=== PATIENT | female | born 1955 | race Caucasian/White ===

== ENCOUNTER 2020-09-03 12:21 | Emergency (ER) | payer MEDICARE, BC ==
[~2020-09-03] VITALS: Ht 154.9 cm; Wt 78.9 kg
[2020-09-03] MEDS ORDERED: TYLOPHEN500 MG PO (12:45)
[2020-09-03] MEDS ORDERED: PREDNISONE20 MG PO (14:27)
== END 2020-09-03 14:43 | disposition home or self-care (01) ==
LOC: ED 12:21
DX: M54.41 Lumbago with sciatica, right side (principal); M54.42 Lumbago with sciatica, left side; Z87.891 Personal history of nicotine dependence; Z88.5 Allergy status to narcotic agent; Z79.899 Other long term (current) drug therapy
CPT/HCPCS: 99283

== ENCOUNTER 2020-09-15 13:50 | Emergency (ER) | payer MEDICARE, BC ==
[~2020-09-15] VITALS: Ht 154.9 cm; Wt 78.9 kg
[~2020-09-15 13:50] MED LIST: PREDNISONE20 MG PO; TYLOPHEN500 MG PO
--- OUTSIDE RECORDS SUMMARY | 2020-09-15 13:54 | XMS ---
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 Mary has no Care Guidelines for this patient. Deejay VISIT COUNT (12 MO.) [address] TOTAL 3 NOTE: Visits indicate total known visits. ED/C VISIT TRACKING (12 MO.) [facility] COMPLAINT: - LOWER BACK PAIN 09/03/2020 12:22 J[facility] Vaughn [place] TYPE: Emergency COMPLAINT: - BACK PAIN, NO INJURY DIAGNOSES: - Other care home (current) drug therapy - Personal history of nicotine dependence - Lumbago with sciatica, left side - Allergy status to narcotic agent - Low back pain - Lumbago with sciatica, right side 03/22/2020 08:45 [facility] [place] TYPE: Emergency DIAGNOSES: - L SIDE PAIN - Diverticulitis of intestine, part unspecified, without perforation or abscess without bleeding INPATIENT VISIT TRACKING (12 MO.) No inpatient visits to display in this time frame [email or web address]
[2020-09-15] MEDS ORDERED: NEURONTIN300 MG PO (15:09)
[2020-09-15] MEDS ORDERED: MELOXICAM7.5 MG PO (15:09)
== END 2020-09-15 15:42 | disposition home or self-care (01) ==
LOC: ED 13:50
DX: M48.061 Spinal stenosis, lumbar region without neurogenic claudication (principal); Z87.891 Personal history of nicotine dependence; Z88.5 Allergy status to narcotic agent
CPT/HCPCS: 72131; 96372; 99283-25; J1885

== ENCOUNTER 2022-04-06 19:08 | Emergency (ER) | payer BC, MEDICARE ==
[~2022-04-06] VITALS: Ht 154.9 cm; Wt 73.2 kg
[~2022-04-06 19:08] MED LIST changes: +MELOXICAM7.5 MG PO; +NEURONTIN300 MG PO
--- OUTSIDE RECORDS SUMMARY | 2022-04-06 19:10 | XMS ---
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 Mary has no Care Guidelines for this patient. Deejay VISIT COUNT (12 MO.) [address] Hilario Mcdonald TOTAL 4 NOTE: Visits indicate total known visits. ED/C VISIT TRACKING (12 MO.) 04/06/2022 19:09 [facility] [place] [facility] COMPLAINT: - FLANK PAIN 03/21/2022 13:35 [facility] DIAGNOSES: - Low back pain, unspecified - BACK PROBLEM 02/01/2022 12:23 [facility] [place] TYPE: Emergency DIAGNOSES: - Pneumonia, unspecified organism - COUGH FEVER JOINT PAIN LUNSFORD EAR PAIN 12/05/2021 12:52 [facility] DIAGNOSES: - Pain due to internal orthopedic prosthetic devices, implants and grafts, initial encounter - Presence of right artificial hip joint - POST OP FEVER VOMTING - Fever, unspecified INPATIENT VISIT TRACKING (12 MO.) No inpatient visits to display in this time frame [id number]
[2022-04-06] MEDS ORDERED: HYDROCODON-ACE1 EA10 PO (23:49)
== END 2022-04-07 01:05 | disposition home or self-care (01) ==
LOC: ED 19:08
DX: S39.012A Strain of muscle, fascia and tendon of lower back, initial encounter (principal); X50.9XXA Other and unspecified overexertion or strenuous movements or postures, initial encounter; M19.90 Unspecified osteoarthritis, unspecified site; Z87.891 Personal history of nicotine dependence; Z88.5 Allergy status to narcotic agent; Z79.899 Other long term (current) drug therapy
CPT/HCPCS: 72131; 96374; 96375; 96376; 99283-25; A9270; J1885; J2270; J3360

== ENCOUNTER 2022-04-12 14:45 | Emergency (ER) | payer MEDICARE, BC ==
[~2022-04-12] VITALS: Ht 154.9 cm; Wt 73.0 kg
[~2022-04-12 14:45] MED LIST changes: +HYDROCODON-ACE1 EA10 PO
--- OUTSIDE RECORDS SUMMARY | 2022-04-12 14:49 | XMS ---
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 Mary has no Care Guidelines for this patient. Deejay VISIT COUNT (12 MO.) 3 [facility] 2 [facility] TOTAL 5 NOTE: Visits indicate total known visits. ED/C VISIT TRACKING (12 MO.) [facility]12[facility]2022 14[facility]46 [facility] COMPLAINT: - FLANK PAIN 04/06/2022 19:09 [facility] [place] TYPE: Emergency COMPLAINT: - FLANK PAIN DIAGNOSES: - Other [facility] (current) drug therapy - Allergy status to narcotic agent - Other and unspecified overexertion or strenuous movements or postures, initial encounter - Personal history of nicotine dependence - Dorsalgia, unspecified - Strain of muscle, fascia and tendon of lower back, initial encounter - Unspecified osteoarthritis, unspecified site 03/21/2022 13:35 [facility] [place] TYPE: Emergency DIAGNOSES: - Low back pain, unspecified - BACK PROBLEM 02/01/2022 12:23 [facility] [place] TYPE: Emergency DIAGNOSES: - Pneumonia, unspecified organism - COUGH FEVER JOINT PAIN LUNSFORD EAR PAIN 12/05/2021 12:52 [facility] [place] TYPE: Emergency DIAGNOSES: - Pain due to internal orthopedic prosthetic devices, implants and grafts, initial encounter - Presence of right artificial hip joint - POST OP FEVER VOMTING - Fever, unspecified INPATIENT VISIT TRACKING (12 MO.) No inpatient visits to display in this time frame [id number]
[2022-04-12] MEDS ORDERED: PRAVASTATIN SOD10 MG PO (15:13)
[2022-04-12] MEDS ORDERED: HYDROCHLOROTH12.5 MG PO (15:13)
[2022-04-12] MEDS ORDERED: DILAUDID2 MG PO (20:14)
--- OUTSIDE RECORDS SUMMARY | 2022-04-12 21:10 | XMS ---
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 Mary has no Care Guidelines for this patient. Deejay VISIT COUNT (12 MO.) 3 [place] [id number] JONY Mishra TOTAL 5 NOTE: Visits indicate total known visits. ED/C VISIT TRACKING (12 MO.) 04/12/2022 14:46 [facility] [place] TYPE: Emergency COMPLAINT: - FLANK PAIN 04/06/2022 19:09 [facility] [place] TYPE: Emergency COMPLAINT: - FLANK PAIN DIAGNOSES: - Unspecified osteoarthritis, unspecified site - Other [facility] (current) drug therapy - Allergy status to narcotic agent - Other and unspecified overexertion or strenuous movements or postures, initial encounter - Personal history of nicotine dependence - Dorsalgia, unspecified - Strain of muscle, fascia and tendon of lower back, initial encounter 03/21/2022 13:35 [facility] [place] TYPE: Emergency DIAGNOSES: - Low back pain, unspecified - BACK PROBLEM 02/01/2022 12:23 [facility] [place] TYPE: Emergency DIAGNOSES: - Pneumonia, unspecified organism - COUGH FEVER JOINT PAIN LUNSFORD EAR PAIN 12/05/2021 12:52 [facility] [place] TYPE: Emergency DIAGNOSES: - Pain due to internal orthopedic prosthetic devices, implants and grafts, initial encounter - Presence of right artificial hip joint - POST OP FEVER VOMTING - Fever, unspecified INPATIENT VISIT TRACKING (12 MO.) 04/12/2022 15:33 JON[facility] Vaughn [place] TYPE: Observation COMPLAINT: - FLANK PAIN [email or web address]
== END 2022-04-12 21:13 | disposition home or self-care (01) ==
LOC: ED 14:45 → MS 15:33 → ED 21:13
DX: M54.42 Lumbago with sciatica, left side (principal); M19.90 Unspecified osteoarthritis, unspecified site; Z87.891 Personal history of nicotine dependence; Z88.5 Allergy status to narcotic agent; Z79.899 Other long term (current) drug therapy
CPT/HCPCS: 36415; 74177; 80053; 81001; 83690; 85025; 96375; 99284-25; J1170; J2405; J7030; Q9967

== ENCOUNTER 2024-04-26 16:09 | Emergency (ER) | payer MEDICARE, OTHER ==
[~2024-04-26] VITALS: Ht 154.9 cm; Wt 83.5 kg
[~2024-04-26 16:09] MED LIST changes: +DILAUDID2 MG PO; +HYDROCHLOROTH12.5 MG PO; +PRAVASTATIN SOD10 MG PO
[2024-04-26] MEDS ORDERED: MELOXICAM15 MG PO (16:27)
[2024-04-26] MEDS ORDERED: PRAMIPEXOLE0.125 MG PO (16:27)
[2024-04-26] MEDS ORDERED: predniSONE 20 MG TAB PO ONE (16:30)
[2024-04-26] MEDS ORDERED: ALBUTEROL/IPRATROPIUM 3 ML NEB INH ONE (16:45)
[2024-04-26 17:25] VITALS: BP 178/140
[2024-04-26] MEDS ORDERED: BENZONATATE100 MG PO (17:33)
== END 2024-04-26 17:45 | disposition home or self-care (01) ==
LOC: ED 16:09
DX: U07.1 COVID-19 (principal); I10 Essential (primary) hypertension; E78.5 Hyperlipidemia, unspecified; Z87.891 Personal history of nicotine dependence; Z88.5 Allergy status to narcotic agent; Z79.899 Other long term (current) drug therapy
CPT/HCPCS: 71045; 94640; 99284-25; J7512; U0002